=== PATIENT | male | born 1945 | race Caucasian/White ===

== ENCOUNTER 2022-03-05 14:38 | Emergency (ER) | payer MEDICARE, OTHER ==
[2022-03-05] MEDS ORDERED: Sodium Chloride 0.9% 10 ML Syringe FLUSH PRN (17:20)
== END 2022-03-05 18:44 | disposition home or self-care (01) ==
LOC: JD.ED 14:38
DX: R14.0 Abdominal distension (gaseous) (principal); R18.8 Other ascites
CPT/HCPCS: 36415; 80053; 85025; 99284; J3490

== ENCOUNTER 2022-06-07 12:34 | Emergency (ER) | payer MEDICARE, BC | END 2022-06-07 14:24 | disposition home or self-care (01) | LOC: JD.ED 12:34 | DX: R18.8 Other ascites (principal); Z79.899 Other long term (current) drug therapy; Z79.4 Long term (current) use of insulin | CPT/HCPCS: 99283 ==